=== PATIENT | female | born 1985 | race Caucasian/White ===

== ENCOUNTER 2021-10-25 10:02 | Emergency (ER) | payer MEDICAID ==
[2021-10-25] MEDS ORDERED: Ondansetron ODT 4 MG TAB ONE ×2 (11:03→15:12)
[2021-10-25] MEDS ORDERED: Oxymetazoline HCl 0.05% (30 ML BOT) ONE (11:04)
[2021-10-25] MEDS ORDERED: Ondansetron PF 4 MG/2 ML Vial ONE (15:11)
[2021-10-25] MEDS ORDERED: Meclizine HCl 25 MG TAB ONE (15:11)
== END 2021-10-25 12:38 | disposition home or self-care (01) ==
LOC: ERS 10:02
DX: U07.1 COVID-19 (principal); F17.210 Nicotine dependence, cigarettes, uncomplicated
CPT/HCPCS: 87804; 99283; J2405; Q0162; U0003; U0005

== ENCOUNTER 2022-03-09 12:53 | Emergency (ER) | payer MEDICAID, OTHER ==
[2022-03-09] MEDS ORDERED: Amoxicillin/Potassium Clav 875 MG TAB ONE (13:33)
== END 2022-03-09 13:55 | disposition home or self-care (01) ==
LOC: ERS 12:53
DX: J02.9 Acute pharyngitis, unspecified (principal); F17.210 Nicotine dependence, cigarettes, uncomplicated
CPT/HCPCS: 87081; 87430; 99283

== ENCOUNTER 2023-01-17 14:58 | Emergency (ER) | payer OTHER, SELFPAY ==
[2023-01-17] MEDS ORDERED: Lidocaine 1% (PF) 30 ML VIAL ONE (17:01)
[2023-01-17] MEDS ORDERED: Rabies Vaccine Human 2.5 UNITS VIAL ONE (18:14)
[2023-01-17] MEDS ORDERED: Rabies Immune Globulin/PF 300 UNITS/ML VIAL ONE (18:19)
[2023-01-17] MEDS ORDERED: traMADol HCl 50 MG TAB ONE (19:59)
== END 2023-01-17 20:01 | disposition home or self-care (01) ==
LOC: ERS 14:58
DX: S51.811A Laceration without foreign body of right forearm, initial encounter (principal); F17.210 Nicotine dependence, cigarettes, uncomplicated; Z20.3 Contact with and (suspected) exposure to rabies; W54.0XXA Bitten by dog, initial encounter
CPT/HCPCS: 12002; 90375; 90471; 90675; 96372; J2001

== ENCOUNTER 2023-01-20 15:47 | Emergency (ER) | payer OTHER, SELFPAY ==
[2023-01-20] MEDS ORDERED: Rabies Vaccine Human 2.5 UNITS VIAL ONE (17:04)
== END 2023-01-20 17:26 | disposition home or self-care (01) ==
LOC: ERS 15:47
DX: S51.851A Open bite of right forearm, initial encounter (principal); F17.210 Nicotine dependence, cigarettes, uncomplicated; W54.0XXA Bitten by dog, initial encounter
CPT/HCPCS: 90471; 90675; 99283

== ENCOUNTER 2023-01-31 18:08 | Emergency (ER) | payer OTHER, SELFPAY ==
[2023-01-31] MEDS ORDERED: Rabies Vaccine Human 2.5 UNITS VIAL ONE (18:36)
== END 2023-01-31 19:01 | disposition home or self-care (01) ==
LOC: ERS 18:08
DX: Z20.3 Contact with and (suspected) exposure to rabies (principal); S51.811D Laceration without foreign body of right forearm, subsequent encounter; F17.210 Nicotine dependence, cigarettes, uncomplicated; W54.0XXA Bitten by dog, initial encounter
CPT/HCPCS: 90471; 90675

== ENCOUNTER 2023-03-29 06:16 | Emergency (ER) | payer SELFPAY ==
[2023-03-29] MEDS ORDERED: Ketorolac Tromethamine 30 MG (1 mL) VIAL ONE (07:38)
[2023-03-29] MEDS ORDERED: Lidocaine 1% (PF) 30 ML VIAL ONE (07:41)
== END 2023-03-29 08:59 | disposition home or self-care (01) ==
LOC: ERS 06:16
DX: S93.105A Unspecified dislocation of left toe(s), initial encounter (principal); F17.210 Nicotine dependence, cigarettes, uncomplicated; W01.0XXA Fall on same level from slipping, tripping and stumbling without subsequent striking against object, initial encounter
CPT/HCPCS: 28570; 96372; J1885; J2001

== ENCOUNTER 2023-12-03 11:19 | Outpatient (CLI) | payer OTHER | END 2023-12-03 11:20 | disposition home or self-care (01) | LOC: BICRAD 11:19 | PROVIDERS: ATTEND Family Medicine | DX: M79.672 Pain in left foot (principal); M25.572 Pain in left ankle and joints of left foot; M77.52 Other enthesopathy of left foot and ankle; M34.89 Other systemic sclerosis ==

== ENCOUNTER 2024-11-17 09:04 | Outpatient (CLI) | payer OTHER | END 2024-11-17 09:05 | disposition home or self-care (01) | LOC: SCSMRI 09:04 | PROVIDERS: ATTEND Family Medicine | DX: M54.16 Radiculopathy, lumbar region (principal); R93.6 Abnormal findings on diagnostic imaging of limbs; M48.07 Spinal stenosis, lumbosacral region; M25.80 Other specified joint disorders, unspecified joint | CPT/HCPCS: 72148 ==